=== PATIENT | female | born 1995 | race Caucasian/White ===

== ENCOUNTER 2021-10-09 22:43 | Emergency (ER) | payer MEDICAID ==
[~2021-10-09] VITALS: Ht 154.9 cm; Wt 51.1 kg
[2021-10-10] MEDS ORDERED: LORAZEPAM 0.5MG TABLET PO ONE
[2021-10-10] MEDS ORDERED: ONDANSETRON 4MG ODT PO ONE
[2021-10-10 00:31] VITALS: BP 130/87
== END 2021-10-10 00:57 | disposition home or self-care (01) ==
LOC: ER 22:43
DX: F41.9 Anxiety disorder, unspecified (principal); R11.2 Nausea with vomiting, unspecified
CPT/HCPCS: 99283; Q0162